=== PATIENT | female | born 1960 | race Caucasian/White ===

== ENCOUNTER → 2024-06-11 11:30 | Outpatient (REF) | payer MEDICARE, SELFPAY | LOC: RCS 11:30 | PROVIDERS: ATTENDING PHYSICIAN Nurse Practitioner Family; REFERRING PHYSICIAN Psychiatry & Neurology Neurology | DX: Z01.818 Encounter for other preprocedural examination (principal) | CPT/HCPCS: 93005 ==

== ENCOUNTER → 2024-08-05 14:35 | Outpatient (REF) | payer MEDICARE, SELFPAY | LOC: WDC 14:35 | PROVIDERS: ATTENDING PHYSICIAN Obstetrics & Gynecology; FAMILY PHYSICIAN Family Medicine | DX: Z76.89 Persons encountering health services in other specified circumstances (principal); L40.50 Arthropathic psoriasis, unspecified; Z01.89 Encounter for other specified special examinations; E55.9 Vitamin D deficiency, unspecified; Z78.0 Asymptomatic menopausal state; Z12.31 Encounter for screening mammogram for malignant neoplasm of breast | CPT/HCPCS: 77063; 77067 ==

== ENCOUNTER 2025-03-22 16:37 | Emergency (ER) | payer MEDICARE, SELFPAY ==
[2025-03-22 16:43] VITALS: BP 135/82
[2025-03-22 17:18] LABS: INR 1.01; PT 13.6 Sec (11.4-14.6)
[2025-03-22 17:31] LABS: ALT (SGPT) 27 U/L (0-35); AST (SGOT) 33 U/L (14-36); Albumin 4.6 g/dl (3.5-5.0); Alkaline Phosphatase 51 U/L (38-126); Blood Urea Nitrogen 16 mg/dl (7-17); Calcium 9.8 mg/dl (8.4-10.2); Carbon Dioxide 29 mmol/L (22-30); Chloride 103 mmol/L (98-107); Glucose 103 mg/dl (70-99); Potassium 4.3 mmol/L (3.5-5.1); Sodium 139 mmol/L (135-145); Total Bilirubin 0.5 mg/dl (0.2-1.3); Total Protein 8.5 g/dl (6.3-8.2); eGFR > 60.00
[2025-03-22 17:41] LABS: Troponin I < 0.012 ng/ml
[2025-03-22 17:44] LABS: % Basophils 0.1 % (0-2); % Immature Granulocytes 0.1 % (0-0.5); % Monocytes 7.4 % (1.7-9.3); % Neutrophils 39.4 % (42.2-75.2); Absolute Eosinophils 0.2 10^3/uL (0-0.7); Absolute Lymphocytes 3.7 10^3/uL (1.2-3.4); Absolute Monocytes 0.5 10^3/uL (0.1-0.6); Absolute Neutrophils 2.9 10^3/uL (1.4-6.5); Hematocrit 42.5 % (37.0-47.0); Hemoglobin 14.2 g/dL (12.0-16.0); Mean Corp Hgb Conc. 33.4 g/dL (33.0-37.0); Mean Corpuscular Hgb 30.1 pg (27.0-31.0); Nucleated Red Blood Cells % 0 %; Platelet Count 196 10^3/uL (130-400); Red Blood Cell Count 4.72 10^6/uL (4.20-5.40); Red Cell Dist. Width 12.5 % (11.5-14.5); White Blood Cell Count 7.3 10^3/uL (4.8-10.8)
--- NOTE | 2025-03-22 19:25 | ED.GENMED ---
History of Present Illness
General
Chief Complaint: Chest Pain
Source: patient
Exam Limitations: none
Time Seen by Provider: 03/22/25 19:18
History of Present Illness
History of Present Illness:
See MDM
Past History
Past History
ED Past Medical History: Other (Psoriatic arthritis)
ED Past Surgical History: Other (Cataract)
Social History
Tobacco: Non-smoker
Alcohol: None
Phy Exam
Physical Exam
Physical Exam:
See MDM
Scores
Heart Score for Chest Pain Patients
STEMI patient?: No
History: Slightly or Non-Suspicious
ECG: Normal
Age: >/= 65 years
Risk Factors: No Risk Factors
Troponin: </= Normal Limit
Heart Score for Chest Pain Patients: 2
Heart Score Risk: 2.5% MACE over next 6 weeks
Course
Orders/Labs/Results
Orders:
Orders
03/22/25 16:38
EKG [Electrocardiogram (*1)] Urgent
Reason for Study: Chest Pain
EKG- Treatment ONCE
03/22/25 16:57
Complete Blood Count/With Diff Urgent
Prothrombin Time Urgent
Troponin I Urgent
03/22/25 16:58
Comprehensive Metabolic Panel Urgent
03/22/25 19:24
CR Chest - 2 Views Urgent
Comment:
Reason For Exam: intermittent chest and back pain
Abnormal Lab Results
03/22/25 03/22/25
16:57 16:58
Absolute Lymphs (auto) 3.7 H 10^3/uL
(1.2-3.4)
Neutrophils % 39.4 L %
(42.2-75.2)
Glucose 103 H mg/dl
(70-99)
Total Protein 8.5 H g/dl
(6.3-8.2)
03/22/25 16:57
03/22/25 16:58
Vital Signs
Initial and Last Documented VS:
Initial Vital Signs
Temp Pulse Resp BP Pulse Ox
97.5 F 66 16 135/82 98
03/22/25 16:43 03/22/25 16:43 03/22/25 16:43 03/22/25 16:43 03/22/25 16:43
Last Documented Vital Signs
Temp Pulse Resp BP Pulse Ox
97.5 F 66 16 135/82 98
03/22/25 16:43 03/22/25 16:43 03/22/25 16:43 03/22/25 16:43 03/22/25 16:43
MDM/Problems Addressed
Differential Diagnosis Includes:
HPI and MDM Narrative:
64-year-old female presenting for evaluation of intermittent chest and back pain. Approximate 1 week ago, patient had an episode of sudden onset of chest pain that appeared to go to her center back. She then noted bilateral lateral lower rib pain.
This lasted 15 minutes or so. She initially thought this was related to recent ab exercises. However, it happened again earlier today lasting about 15 minutes. She is currently symptom-free. She states that symptoms actually improve when she
gets up and walks around. Blood work was done prior to my assessment showing a normal troponin. EKG is nonischemic. Given the 2 episodes, will obtain chest x-ray. She has no clinical signs to suspect DVT. She is not tachycardic or hypoxic.
Physical exam
General: Well appearing and non-toxic
HEENT: protecting airway
Neck: appears supple
CV: No evidence of cyanosis. Regular rate and rhythm
Resp: No accessory muscle use. Lungs clear
Abd: Non-distended and nontender
Extremities: No deformities
Neuro: alert
Psych: Normal affect
Skin: Intact
Problems Addressed including Acute and Chronic Conditions affecting care:
1. Intermittent chest and back pain
Acuity: acute
Prognosis: stable
Details: Doubt ACS given duration of symptoms with improvement with exertion. Will obtain chest x-ray and discussed outpatient follow
Updates
Chest x-ray clear. Will place on cardiac callback tracker. Patient feels comfortable going home
Differential Diagnosis (but not limited to): Esophagitis, noncardiac chest pain, pneumothorax
Testing considered: D-dimer
Drug therapy (if applicable): OTC meds, please see d/c instruction regarding Rx drugs
Amount and/or Complexity of Data Reviewed
Clinical info obtained from: Patient
External data reviewed: N/A
Labs I independently reviewed (but not limited to): Troponin normal
Radiology: X-ray independently reviewed: Chest x-ray clear
Pulse Ox: not hypoxic
EKG independently reviewed: Sinus rhythm, normal axis, no STEMI
Car Oiler: N/A
Critical Care: N/A
Risk of Complication:
Social Determinants of health: Good social support
Discussed with other providers: N/A
Escalation of Care includes Admit/Obs: After being observed in the Emergency Department, pt stable for discharge.
Occasional wrong word or 'sound a like' substitutions may have occurred due to the inherent limitations of voice recognition software. Read the chart carefully and recognize, using context, where substitutions have occurred.
*Critical Care Note
Total Time (30-74mins, 75-104mins- exclusive of procedures): Not Applicable
ED Attending Note
-
Portions of this chart may have been created with voice recognition software.� Occasional wrong word or��sound alike� substitutions may have occurred due to the inherent limitations of voice recognition software.
Discharge Plan
Departure
Patient Disposition: Home (Routine Discharge)
Date of Disposition: 03/22/25
Time of Disposition: 19:48
Patient with high blood pressure during this ER visit?: No
Discharge Problem:
Chest pain
Instructions: Chest Pain [facility] Follow Up
Referrals:
Colton Champagne MD [Active, Cardiology]
Activity Restrictions/Additional Instructions:
Please return for any worsening symptoms.
You may return at any time if you have further concerns.
Please follow up with your doctor at the first available appointment, preferably this week.
You were placed on the cardiac callback tracker. Someone from their office should call you in the next few days. If you do not hear from them in the next few days, please give them a call.
Thank you for choosing [facility].
Interventions
Interventions:
*Risk Screen - Suicide Last Done: 03/22/25 16:43
*General Assessment Last Done: 03/22/25 16:43
*Neglect/Abuse Screening Last Done: 03/22/25 16:43
Discharge Date and Time
Print Language: BULGARIAN
[2025-03-22 19:56] VITALS: BP 131/70
== END 2025-03-22 20:00 | disposition home or self-care (01) ==
LOC: EMR 16:37
PROVIDERS: Emergency Medicine; EMERGENCY PHYSICIAN Student in an Organized Health Care Education/Training Program
DX: R07.89 Other chest pain (principal); M54.9 Dorsalgia, unspecified; R07.81 Pleurodynia; L40.50 Arthropathic psoriasis, unspecified; Z88.8 Allergy status to other drugs, medicaments and biological substances
CPT/HCPCS: 99283; 71046; 80053; 84484; 85025; 85610; 93005

== ENCOUNTER → 2025-08-01 18:06 | Outpatient (REF) | payer MEDICARE, SELFPAY | LOC: WDC 18:06 | PROVIDERS: ATTENDING PHYSICIAN Obstetrics & Gynecology | DX: Z12.31 Encounter for screening mammogram for malignant neoplasm of breast (principal) | CPT/HCPCS: 77063; 77067 ==